=== PATIENT | male | born 1990 | race Caucasian/White ===

== ENCOUNTER 2021-03-31 20:48 | Emergency (ER) | payer MEDICAID ==
[~2021-03-31] VITALS: Ht 180.3 cm; Wt 90.0 kg
[2021-03-31] MEDS ORDERED: TETanus/Pertussis (Acell)/Diphther VAC/PF (Tdap-Adult) 0.5ml syringe IMVAC ONE (21:20)
[2021-03-31] MEDS ORDERED: LIDOcaine 1% W/epiNEPHrine 1:200,000 10ml vial IJ ONE (21:20)
[2021-03-31] MEDS ORDERED: HYDROcodone/acetaminophen 10/325mg tab PO ONE (21:50)
[2021-03-31] MEDS ORDERED: amox tr/potassium clavulanate 875/125mg TAB PO ONE (21:50)
[2021-03-31] MEDS ORDERED: silver nitrate applicator stick TP ONE (22:05)
[2021-03-31] MEDS ORDERED: AMOX-422 PO (22:43)
[2021-03-31] MEDS ORDERED: HYDR-3965 PO (22:43)
[2021-03-31 23:12] VITALS: BP 130/90
== END 2021-03-31 23:17 | disposition home or self-care (01) ==
LOC: ER 20:49
DX: S68.112A Complete traumatic metacarpophalangeal amputation of right middle finger, initial encounter (principal); S61.214A Laceration without foreign body of right ring finger without damage to nail, initial encounter; Z79.899 Other long term (current) drug therapy; W22.8XXA Striking against or struck by other objects, initial encounter; Y93.89 Activity, other specified; Y92.89 Other specified places as the place of occurrence of the external cause; Y99.8 Other external cause status
CPT/HCPCS: 12001; 12042; 73120; 90715; 99285

== ENCOUNTER 2023-04-07 07:05 | Emergency (ER) | payer MEDICAID ==
[~2023-04-07] VITALS: Ht 180.3 cm; Wt 92.0 kg
--- NOTE | 2023-04-07 08:00 | NUR ---
PT REFUSED FOR LABS TO BE COLLECTED. RN NOTIFIED DR BAUTISTA.
--- NOTE | 2023-04-07 08:15 | NUR ---
PT STATING THAT HE IS WILLING TO COOPERATE AND HAVE HIS LABS DRAWN. RN CALLED LAB AND THEY WILL COME COLLECT BLOOD. DR BAUTISTA NOTIFIED.
[2023-04-07 08:41] LABS: BASOPHILS # (AUTO) 0.1 X10'3 (0-0.2); BASOPHILS % (AUTO) 0.6 % (0-1); EOSINOPHILS % (AUTO) 0.1 % (0-6); HEMOGLOBIN 14.9 g/dl (14.0-17.9); LYMPHOCYTES # (AUTO) 2.3 X10'3 (1.1-4.8); LYMPHOCYTES % (AUTO) 15.1 % (21-51); MEAN CORPUSCULAR HEMOGLOBIN 32.5 PG (27.0-31.0); MEAN CORPUSCULAR HGB CONC 33.8 g/dL (33.0-36.5); MEAN CORPUSCULAR VOLUME 96.2 FL (78-98); MEAN PLATELET VOLUME 9.3 FL (7.4-10.4); MONOCYTES % (AUTO) 6.4 % (2-12); NEUTROPHILS # (AUTO) 11.7 X10'3 (1.8-7.7); NEUTROPHILS % (AUTO) 77.8 % (42-75); PLATELET COUNT 275 X10'3 (140-440); RED BLOOD COUNT 4.57 X10'6 (4.70-6.10); RED CELL DISTRIBUTION WIDTH 12.9 % (11.5-14.5); WHITE BLOOD COUNT 15.1 X10'3 (4.5-11.0)
[2023-04-07] MEDS ORDERED: TETanus/Pertussis (Acell)/Diphther VAC/PF (Tdap-Adult) 0.5ml syringe IMVAC ONE (08:45)
[2023-04-07 08:50] LABS: ALBUMIN 4.1 G/DL (3.4-5.0); ANION GAP 11 (8-16); BLOOD UREA NITROGEN 11 MG/DL (7-18); BUN/CREATININE RATIO 9.8 (10.0-20.0); CALCIUM 9.2 MG/DL (8.5-10.1); CHLORIDE 106 MMOL/L (99-107); CREATININE 1.12 MG/DL (0.60-1.10); GLUCOSE 113 MG/DL (70-104); POTASSIUM 4.2 MMOL/L (3.5-5.1); SODIUM 140 MMOL/L (135-145); eGFR 76 ML/MIN
--- NOTE | 2023-04-07 09:00 | NUR ---
PER PT RN MAY SHARE HEALTH INFO WITH HIS MOTHER ALINA FERNÁNDEZ [phone]. ALINA UPDATED ON PT STATUS.
[2023-04-07 09:52] VITALS: BP 136/83
== END 2023-04-07 10:08 ==
LOC: ER 07:05
DX: S00.81XA Abrasion of other part of head, initial encounter (principal); S80.812A Abrasion, left lower leg, initial encounter; S80.811A Abrasion, right lower leg, initial encounter; V49.3XXA Car occupant (driver) (passenger) injured in unspecified nontraffic accident, initial encounter; Y93.89 Activity, other specified; Y92.89 Other specified places as the place of occurrence of the external cause; Y99.8 Other external cause status
CPT/HCPCS: 36415; 70450; 72125; 80048; 80320; 85025; 90471; 90715; 99285